=== PATIENT | male | born 1990 | race Caucasian/White ===

== ENCOUNTER 2018-06-17 17:00 | Inpatient (IN) ==
[2018-06-17] MEDS ORDERED: Aluminum/Magnesium/Simethacone Susp 30 ML UDC PO PRN (21:44)
[2018-06-17] MEDS ORDERED: Melatonin 5 MG Tablet PO PRN (21:44)
[2018-06-17] MEDS ORDERED: Acetaminophen 325 MG Tablet PO PRN (21:44)
[2018-06-18 07:43] LABS: Anion Gap 7 meq/L (5-15); Blood Urea Nitrogen 17 mg/dL (7-18); Calcium 8.7 mg/dL (8.5-10.1); Carbon Dioxide 26.8 meq/L (21.0-32.0); Chloride 106 meq/L (98-107); Glomerular Filtration Rate Greater Than 89 mL/min (>89); Glucose,Random 88 mg/dL (74-106); Potassium 4.3 meq/L (3.5-5.1); Sodium 140 meq/L (136-145)
[2018-06-18 07:44] LABS: Cholesterol 171 mg/dL (120-200)
[2018-06-18 07:48] LABS: Chol/HDL Ratio 4.16 Ratio; HDL Cholesterol 41.1 mg/dL (40.0-60.0); LDL Cholesterol,Calculated 95 mg/dL (0-99); Triglycerides 174 mg/dL (42-150)
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
[2018-06-18 11:00] LABS: Baso % (Auto) 0.4 % (0.0-2.0); Eos # (Auto) 0.2 th/mm3 (0.0-0.4); Eos % (Auto) 2.9 % (0.0-4.0); Hematocrit 44.2 % (39.0-51.0); Hemoglobin 15.2 gm/dL (13.0-17.0); Lymph # (Auto) 2.9 th/mm3 (1.0-4.8); Lymph % (Auto) 42.9 % (9.0-44.0); Mean Corpuscular HGB Conc 34.4 % (32.0-36.0); Mean Corpuscular Hemoglobin 32.2 pg (27.0-34.0); Mean Corpuscular Volume 93.6 fL (80.0-100.0); Mono # (Auto) 0.6 th/mm3 (0.0-0.9); Mono % (Auto) 8.6 % (0.0-8.0); Neut % (Auto) 45.2 % (16.0-70.0); Platelet Count 215 th/mm3 (150-450); Red Blood Count 4.72 mil/mm3 (4.50-5.90); Red Cell Distribution Width 12.7 % (11.6-17.2); White Blood Count 6.7 th/mm3 (4.0-11.0)
[2018-06-18 16:39] LABS: Hemoglobin A1c 5.5 % (4.3-6.0)
--- NOTE | 2018-06-18 18:13 | ECG ---
Date Performed: 06/18/2018 Time Performed: 13:34:20 PTAGE: 27 years EKG: Sinus rhythm NORMAL ECG NO PREVIOUS TRACING DOCTOR: Eren Chow Interpretating Date/Time 06/18/2018 18:12:50
[2018-06-18] MEDS ORDERED: OLANZapine 10 MG Tablet PO SCH (21:00)
--- NOTE | 2018-06-19 14:03 | P.PNPSY ---
Subjective Chief Complaint: [place]ia Act Remarks: Patient seen and examined with counselorOtis. Chart reviewed. Case discussed with nursing staff who reports patient has been quiet and somewhat seclusive to room. Case discussed with Otis, and I also discussed with counselor Gomez yesterday afternoon the collateral he obtained from patient's sister. On my examination today, the patient reports that he feels unchanged. He does seem a little calmer and less irritable. He does seem to have some insight into his condition saying "I can't live on the outside world. I'm too schizy." He thinks he might need to apply for disability. He complains of high anxiety related to belief that he is being pursued. Continues to feel safe in hospital environment. Denies side effects from medications. No physical complaints. We discussed possible sober living placement after discharge as the patient's limited financial resources make alternative placement unfeasible. Patient seems receptive to this. Vital Signs Temp Pulse Resp BP Pulse Ox 06/19/18 05:58 98.1 F 16 119/86 98 06/18/18 15:17 98.1 F 76 18 117/64 99 Laboratory Results - last 24 hr 06/18/18 06:25 Hemoglobin A1c 5.5 Labs reviewed. Review of Systems All other systems reviewed negative except as stated in HPI Mental Status Examination Appearance: Appropriate Consciousness: Alert, Vigilant Orientation: Person, Place (At least) Motor Activity: Normal gait Speech: Unremarkable Language: Adequate Fund of Knowledge: Adequate Attention and Concentration: Adequate Memory: Unremarkable (Grossly intact on clinical exam) Mood: Anxious Affect: Irritable (Considerably attenuated today), Anxious Thought Process & Associations: Intact Thought Content: Delusional Hallucination Type: None Delusion Type: Paranoid Suicidal Ideation: No Homicidal Ideation: No Insight: Fair Judgment: Impulsive Assessment and Plan - Assessment (1) Unspecified psychosis Code(s): F29 - Unspecified psychosis not due to a substance or known physiological condition Status: Acute - Plan Plan: Titrate Zyprexa to 5 mg in the morning and 15 mg at bedtime as patient reports that his anxiety regarding paranoia is particularly acute overnight. Continue to monitor on the inpatient unit. Continue other medications and care as ordered. Justification for Continued Inpatient Stay: Medication changes. Impairment in reality construction. High risk for decompensation in less restrictive environment. Discharge Planning: Pending psychiatric stabilization. Request Healthcare Surrogate/Guardian Advocate?: No (1) Unspecified psychosis Qualifiers: Psychosis type: unspecified psychosis type Qualified Code(s): F29 - Unspecified psychosis not due to a substance or known physiological condition
[2018-06-19] MEDS: OLANZapine 15 MG Tablet PO SCH (21:15)
--- NOTE | 2018-06-20 11:56 | P.PNPSY ---
Subjective Chief Complaint: Sar[place]ia Act Remarks: Patient seen and examined with nurse. Chart reviewed. Case discussed with nursing staff. No behavioral issues noted overnight. On my examination today, the patient complains of somewhat poor sleep, although he attributes this to someone yelling on the unit. He endorses ongoing anxiety, and it seems that the focus may be underlying belief that he is being pursued. He says that this anxiety occasionally has a panicky quality. No side effects from medications. We discuss pharmacotherapeutic options for management of patient's complaint of anxiety and settle on a trial of gabapentin. I have discussed with the patient that this is off label use of this medication. No physical complaints. Patient remains committed to sober living placement after stabilization. Vital Signs Temp Pulse Resp BP Pulse Ox 06/20/18 06:00 98.1 F 63 17 114/65 97 06/19/18 17:37 98.1 F 84 16 124/77 99 Labs reviewed. No new labs. Review of Systems All other systems reviewed negative except as stated in HPI Mental Status Examination Appearance: Appropriate Consciousness: Alert, Vigilant Orientation: Person, Place (At least) Motor Activity: Normal gait, Other (No hand tremor, no dystonia, no dyskinesia, no other motor abnormalities noted) Speech: Unremarkable Language: Adequate Fund of Knowledge: Adequate Attention and Concentration: Adequate Memory: Unremarkable (Grossly intact on clinical exam) Mood: Anxious Affect: Anxious Thought Process & Associations: Intact, Logical, Linear Thought Content: Delusional Hallucination Type: None Delusion Type: Paranoid (Suspected ongoing) Suicidal Ideation: No Homicidal Ideation: No Insight: Fair Judgment: Impulsive Assessment and Plan - Assessment (1) Unspecified psychosis Code(s): F29 - Unspecified psychosis not due to a substance or known physiological condition Status: Acute - Plan Plan: Add gabapentin 300 mg 3 times daily for management of anxiety. I will continue the patient's Zyprexa as ordered, but to consider titrating this agent or the gabapentin over the weekend as I suspect that the patient's ongoing anxiety is largely a manifestation of the belief, it seems delusional based on collateral information, that he is being pursued. Continue to monitor on the inpatient unit. Continue other medications and care as ordered. Justification for Continued Inpatient Stay: Medication changes. Suspected ongoing impairment in reality construction. Risk for decompensation in less restrictive environment. Discharge Planning: Possible sober living placement. Request Healthcare Surrogate/Guardian Advocate?: No (1) Unspecified psychosis Qualifiers: Psychosis type: unspecified psychosis type Qualified Code(s): F29 - Unspecified psychosis not due to a substance or known physiological condition
[2018-06-20] MEDS: Gabapentin 100 MG Capsule PO SCH ×2 (13:53→17:23)
[2018-06-20] MEDS: OLANZapine 15 MG Tablet PO SCH (21:09)
[2018-06-21] MEDS: Gabapentin 100 MG Capsule PO SCH ×3 (08:52→18:47)
--- NOTE | 2018-06-21 15:21 | P.PNPSY ---
Subjective Chief Complaint: [place] Act Remarks: Reviewed electronic medical records and discussed case with staff. Follow-up was conducted in patient's room with WILMAN Irving present. Patient reports that he feels tired states that he kept waking up last night due to his roommate snoring. He reports that he has a good appetite but still maintains that he feels somewhat depressed. He endorses vague suicidal ideations stating "I lost everything". Mental Status Examination Appearance: Appropriate Consciousness: Alert, Vigilant Orientation: Person, Place (At least) Motor Activity: Normal gait, Other (No hand tremor, no dystonia, no dyskinesia, no other motor abnormalities noted) Speech: Unremarkable Language: Adequate Fund of Knowledge: Adequate Attention and Concentration: Adequate Memory: Unremarkable (Grossly intact on clinical exam) Mood: Anxious Affect: Anxious Thought Process & Associations: Intact, Logical, Linear Thought Content: Delusional Hallucination Type: None Delusion Type: Paranoid (Suspected ongoing) Suicidal Ideation: No Suicidal Plan: No Suicidal Intention: No Homicidal Ideation: No Homicidal Plan: No Homicidal Intention: No Insight: Fair Judgment: Impulsive Assessment and Plan - Assessment (1) Unspecified psychosis Code(s): F29 - Unspecified psychosis not due to a substance or known physiological condition Status: Acute - Plan Plan: Patient will be reevaluated Saturday by the attending psychiatrist. Continue with current treatment plan. Justification for Continued Inpatient Stay: Moving this patient to a less restrictive environment would likely result in decompensation. Request Healthcare Surrogate/Guardian Advocate?: No (1) Unspecified psychosis Qualifiers: Psychosis type: unspecified psychosis type Qualified Code(s): F29 - Unspecified psychosis not due to a substance or known physiological condition
[2018-06-21] MEDS: OLANZapine 15 MG Tablet PO SCH (20:06)
[2018-06-22] MEDS: Gabapentin 100 MG Capsule PO SCH ×3 (09:03→17:44)
--- NOTE | 2018-06-22 14:27 | P.PNPSY ---
Subjective Chief Complaint: [place] Act Remarks: Reviewed electronic medical records and discussed case with staff. Follow-up was conducted in the [facility] area with WILMAN Irving present. Patient has been cooperative and calm. Patient states that he has been having increasing anxiety and cannot sleep. He states that he takes Seroquel regularly and without it he is not resting which is increasing his anxiety. Nursing reports that he is having flashbacks regarding a friend that was killed. He states that he needs to manage his rest or he will struggle to cope. Review of Systems All other systems reviewed negative except as stated in HPI Mental Status Examination Appearance: Appropriate Consciousness: Alert, Vigilant Orientation: Person, Place (At least) Motor Activity: Normal gait, Other (No hand tremor, no dystonia, no dyskinesia, no other motor abnormalities noted) Speech: Unremarkable Language: Adequate Fund of Knowledge: Adequate Attention and Concentration: Adequate Memory: Unremarkable (Grossly intact on clinical exam) Mood: Anxious Affect: Anxious Thought Process & Associations: Intact, Logical, Linear Thought Content: Delusional Hallucination Type: None Delusion Type: Paranoid (Suspected ongoing) Suicidal Ideation: No Suicidal Plan: No Suicidal Intention: No Homicidal Ideation: No Homicidal Plan: No Homicidal Intention: No Insight: Fair Judgment: Impulsive Assessment and Plan - Assessment (1) Unspecified psychosis Code(s): F29 - Unspecified psychosis not due to a substance or known physiological condition Status: Acute - Plan Plan: Patient will be reevaluated Saturday by the attending psychiatrist. Continue with current treatment plan. Justification for Continued Inpatient Stay: Moving patient to a less restrictive environment may result in his decompensation. Request Healthcare Surrogate/Guardian Advocate?: No (1) Unspecified psychosis Qualifiers: Psychosis type: unspecified psychosis type Qualified Code(s): F29 - Unspecified psychosis not due to a substance or known physiological condition
[2018-06-22] MEDS ORDERED: QUEtiapine 25 MG Tablet PO SCH (21:00)
[2018-06-22] MEDS: OLANZapine 15 MG Tablet PO SCH (22:11)
[2018-06-23] MEDS: Gabapentin 100 MG Capsule PO SCH ×3 (08:39→17:18)
--- NOTE | 2018-06-23 12:35 | P.PNPSY ---
Subjective Chief Complaint: Sarabia Act Remarks: Patient seen and examined with nurse. Chart reviewed. Case discussed with nursing staff who reports patient wants to return to the higher acuity unit and is threatening to act out to achieve this goal. Case discussed with counselor, who will work with patient on discharge planning. On my exam, antisocial personality traits are noted. He does says that he wishes to return to high acuity unit saying that he does not feel comfortable on the lower acuity unit, although he will not go into specifics as to why. He complains of anxiety and poor sleep, and we discuss med adjustments to manage these issues. Denies side effects from medications. No physical complaints. Vital Signs Temp Pulse Resp BP Pulse Ox 06/23/18 06:04 98.5 F 62 17 98/55 L 97 06/22/18 17:24 97.9 F 96 H 17 125/82 100 Labs reviewed. No new labs. Review of Systems All other systems reviewed negative except as stated in HPI Mental Status Examination Appearance: Appropriate Consciousness: Alert, Vigilant Orientation: Person, Place (At least) Motor Activity: Normal gait, Other (No motor abnormalities noted) Speech: Unremarkable Language: Adequate Fund of Knowledge: Adequate Attention and Concentration: Adequate Memory: Unremarkable (Grossly intact on clinical exam) Mood: Anxious Affect: Irritable, Anxious Thought Process & Associations: Intact, Logical, Linear Thought Content: Delusional Hallucination Type: None Delusion Type: Paranoid Suicidal Ideation: No Suicidal Plan: No Suicidal Intention: No Homicidal Ideation: No Homicidal Plan: No Homicidal Intention: No Insight: Fair Judgment: Impulsive Assessment and Plan - Assessment (1) Unspecified psychosis Code(s): F29 - Unspecified psychosis not due to a substance or known physiological condition Status: Acute - Plan Plan: Titrate Zyprexa to 10 mg in the morning and 20 mg at bedtime to target residual psychiatric symptoms. We could also consider titrating the patient's gabapentin. Discontinue Seroquel as I feel this introduces unnecessary antipsychotic polypharmacy. Spoke with charge nurse, and we will return patient to high acuity unit. Continue other medications and care as ordered. Justification for Continued Inpatient Stay: Medication changes. Impairment in reality construction. Risk for decompensation in less restrictive environment. Discharge Planning: Possible sober living placement. Request Healthcare Surrogate/Guardian Advocate?: No (1) Unspecified psychosis Qualifiers: Psychosis type: unspecified psychosis type Qualified Code(s): F29 - Unspecified psychosis not due to a substance or known physiological condition
[2018-06-23] MEDS: OLANZapine 10 MG Tablet PO SCH (20:20)
[2018-06-24] MEDS: Gabapentin 100 MG Capsule PO SCH ×3 (09:06→17:24)
[2018-06-24] MEDS: OLANZapine 10 MG Tablet PO SCH ×2 (09:06→20:12)
--- NOTE | 2018-06-24 13:20 | P.PNPSY ---
Subjective Chief Complaint: Sarabia Act Remarks: Reviewed electronic medical records and discussed case with staff. Follow-up was conducted in the hallway with WILMAN Valladares present. Patient reports that he had trouble falling and staying asleep last night feels it is due to his Seroquel being discontinued. States he does not understand what I had to be done. He reports that his appetite's been good denies any side effects from medications. States that his mood is "great". Mental Status Examination Appearance: Appropriate Consciousness: Alert, Vigilant Orientation: Person, Place (At least) Motor Activity: Normal gait, Other (No motor abnormalities noted) Speech: Unremarkable Language: Adequate Fund of Knowledge: Adequate Attention and Concentration: Adequate Memory: Unremarkable (Grossly intact on clinical exam) Mood: Anxious Affect: Irritable, Anxious Thought Process & Associations: Intact, Logical, Linear Thought Content: Delusional Hallucination Type: None Delusion Type: Paranoid Suicidal Ideation: No Suicidal Plan: No Suicidal Intention: No Homicidal Ideation: No Homicidal Plan: No Homicidal Intention: No Insight: Fair Judgment: Impulsive Assessment and Plan - Assessment (1) Unspecified psychosis Code(s): F29 - Unspecified psychosis not due to a substance or known physiological condition Status: Acute - Plan Plan: Patient will be reevaluated tomorrow by the attending psychiatrist. Continue with current treatment plan. Justification for Continued Inpatient Stay: Moving this patient to a less restrictive environment would likely result in decompensation. Request Healthcare Surrogate/Guardian Advocate?: No (1) Unspecified psychosis Qualifiers: Psychosis type: unspecified psychosis type Qualified Code(s): F29 - Unspecified psychosis not due to a substance or known physiological condition
[2018-06-25] MEDS: Gabapentin 100 MG Capsule PO SCH ×3 (08:44→17:41)
[2018-06-25] MEDS: OLANZapine 10 MG Tablet PO SCH ×2 (08:44→20:13)
--- NOTE | 2018-06-25 10:16 | P.PNPSY ---
Subjective Chief Complaint: Sarabia Act Remarks: Patient seen and examined with counselor and nurse. Chart reviewed. Case discussed with nursing staff who reports patient is social and no behavioral issue. Case discussed with counselor. On my examination today, the patient complains of hostile auditory hallucinations occurring inside his head more or less constantly. He describes anxiety associated with these reported hallucinations. He does not appear particularly internally stimulated. He complains of ongoing poor sleep. No side effects from medications. No physical complaints. Vital Signs Temp Pulse Resp BP Pulse Ox 06/25/18 06:07 87 17 139/87 97 06/24/18 17:43 97.8 F 99 H 18 139/75 98 Labs reviewed. No new labs. Review of Systems All other systems reviewed negative except as stated in HPI Mental Status Examination Appearance: Appropriate Consciousness: Alert, Vigilant Orientation: Person, Place (At least) Motor Activity: Other (No abnormal motor movements noted) Speech: Unremarkable Language: Adequate Fund of Knowledge: Adequate Attention and Concentration: Adequate Memory: Unremarkable (Grossly intact on clinical exam) Mood: Anxious Affect: Appropriate Thought Process & Associations: Intact, Logical, Linear Thought Content: Appropriate Hallucination Type: Auditory, Other (Does not appear internally stimulated) Delusion Type: None Suicidal Ideation: No Homicidal Ideation: No Insight: Fair Judgment: Impulsive Assessment and Plan - Assessment (1) Unspecified psychosis Code(s): F29 - Unspecified psychosis not due to a substance or known physiological condition Status: Acute - Plan Plan: Possibly some degree of symptom exaggeration for long term. However, taking patient's symptom report at face value he appears to be having an inadequate response to current therapy despite robust dose of Zyprexa. I will plan to consolidate the patient's Zyprexa to HS given ongoing issues with sleep. Since the patient has already received his morning dose of Zyprexa, I will administer 20 mg dose at bedtime tonight and titrate to 30 mg at bedtime tomorrow. I will additionally augment the Zyprexa with a typical antipsychotic, Haldol 2 mg twice daily to target the patient's reported auditory hallucinations. R/B/A for medication changes discussed with patient in detail. Continue other medications and care as ordered. Continue to monitor on the inpatient unit. Justification for Continued Inpatient Stay: Medication changes. Reported impairment in reality construction. High risk for decompensation in less restrictive environment. Discharge Planning: Pending psychiatric stabilization. Counselor working on discharge planning. Request Healthcare Surrogate/Guardian Advocate?: No (1) Unspecified psychosis Qualifiers: Psychosis type: unspecified psychosis type Qualified Code(s): F29 - Unspecified psychosis not due to a substance or known physiological condition
[2018-06-26] MEDS: Gabapentin 100 MG Capsule PO SCH ×3 (08:54→21:17)
--- NOTE | 2018-06-26 12:40 | P.PNPSY ---
Subjective Chief Complaint: Sarabia Act Remarks: Patient seen and examined. Chart reviewed. Case discussed with nursing staff. Case discussed with counselor who reports he is trying to assist the patient with arranging for some sort of placement after discharge. On my examination today, the patient denies any SI or HI. Denies any hallucinations. No other psychotic material. No side effects from medications. No physical complaints. Vital Signs Temp Pulse Resp BP Pulse Ox 06/26/18 04:48 97.4 F L 79 16 130/84 96 06/25/18 16:54 97.9 F 84 16 134/75 97 Labs reviewed. No new labs. Review of Systems All other systems reviewed negative except as stated in HPI Mental Status Examination Appearance: Appropriate Consciousness: Alert, Vigilant Orientation: Person, Place (At least) Motor Activity: Other (No hand tremor, no cogwheeling, no dystonia, no dyskinesia, no hypomimia, no other motor abnormalities noted.) Speech: Unremarkable Language: Adequate Fund of Knowledge: Adequate Attention and Concentration: Adequate Memory: Unremarkable (Grossly intact on clinical exam) Mood: Appropriate Affect: Appropriate Thought Process & Associations: Intact, Logical, Linear Thought Content: Appropriate Hallucination Type: None Delusion Type: None Suicidal Ideation: No Suicidal Plan: No Suicidal Intention: No Homicidal Ideation: No Homicidal Plan: No Homicidal Intention: No Insight: Fair Judgment: Impulsive Assessment and Plan - Assessment (1) Unspecified psychosis Code(s): F29 - Unspecified psychosis not due to a substance or known physiological condition Status: Acute - Plan Plan: Consolidate Zyprexa to 30 mg at bedtime as planned. Continue Haldol as ordered. Continue other psychotropic medications and other care as ordered. Continue to monitor on the inpatient unit. Justification for Continued Inpatient Stay: Medication changes. Discharge Planning: Possible discharge tomorrow Request Healthcare Surrogate/Guardian Advocate?: No (1) Unspecified psychosis Qualifiers: Psychosis type: unspecified psychosis type Qualified Code(s): F29 - Unspecified psychosis not due to a substance or known physiological condition
[2018-06-26] MEDS: OLANZapine 10 MG Tablet PO SCH (20:14)
--- NOTE | 2018-06-27 09:24 | P.PNPSY ---
Subjective Chief Complaint: Sarabia Act Mental Status Examination Appearance: Appropriate Consciousness: Alert, Vigilant Orientation: Person, Place (At least) Motor Activity: Other (No hand tremor, no cogwheeling, no dystonia, no dyskinesia, no hypomimia, no other motor abnormalities noted.) Speech: Unremarkable Language: Adequate Fund of Knowledge: Adequate Attention and Concentration: Adequate Memory: Unremarkable (Grossly intact on clinical exam) Mood: Appropriate Affect: Appropriate Thought Process & Associations: Intact, Logical, Linear Thought Content: Appropriate Hallucination Type: None Delusion Type: None Suicidal Ideation: No Suicidal Plan: No Suicidal Intention: No Homicidal Ideation: No Homicidal Plan: No Homicidal Intention: No Insight: Fair Judgment: Impulsive Assessment and Plan - Assessment (1) Unspecified psychosis Code(s): F29 - Unspecified psychosis not due to a substance or known physiological condition Status: Acute - Plan Request Healthcare Surrogate/Guardian Advocate?: No (1) Unspecified psychosis Qualifiers: Psychosis type: unspecified psychosis type Qualified Code(s): F29 - Unspecified psychosis not due to a substance or known physiological condition
[2018-06-27] MEDS: Gabapentin 100 MG Capsule PO SCH ×3 (10:31→17:57)
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
--- NOTE | 2018-06-27 13:52 | P.TTN ---
- Patient Problems Problems: 1. Discharge planning 2. Medication compliance 3. Knowledge deficit 4. Lack of coping skills - Progress Toward Goals Provider Present: Dr. Hossein Garcia (Patient meets criteria for discharge.) Psychiatric Counselors Present: Otis Hernandez Jr., [facility] (Patient will go to [facility]. [facility] will provide transportation by purchasing the patient a bus ticket, leaving [facility] at 705 on June 28, 2018 and will arrive in [facility] at 9:05 PM[facility] will provide transportation from the [facility] bus station to their facility.) Group Spec/RT/OT/AGUILAR Present: LAUREN Jackson (Patient attends group and participates appropriately.) - Documentation Teaching Recipient: Patient
[2018-06-27 18:18] VITALS: O2SAT 98
[2018-06-27] MEDS: OLANZapine 10 MG Tablet PO SCH (21:04)
[2018-06-28 05:25] VITALS: BP 132/78; PULSE 78; RESP 20; TEMP 97
== END 2018-06-28 05:13 | disposition home or self-care (01) ==
LOC: H270 21:05 → H260 06-22 15:26 → H270 06-23 14:40
PROVIDERS: ADMIT Psychiatry & Neurology Psychiatry; ATTEND Psychiatry & Neurology Psychiatry